=== PATIENT | female | born 1960 | race Caucasian/White ===

== ENCOUNTER → 2016-05-28 | Outpatient (CLI) | payer BC, OTHER ==
--- NOTE | ~2016-05-28 | 24HR ---
[facility] [place] [address] 24 HR ELECTROCARDIOGRAM REPORT Name: KRISTA LOPEZ Room #: REG [facility]#: [id number] Admission: 05/28/16 Attend Phys: Jose Solorzano MD Discharge: Date of : 64 Date of Service: 05/28/16 1131 Report #: [id number] THIS REPORT FOR: //name// [facility] Test Date: 2016-05-28 Test Time: 11:31:00 Pat Name: KRISTA LOPEZ Department: Room: Gender: Assembler Molded Frames: : 1960 Requested By: Jose Solorzano Order Number: [id number] Janessa MD: Lincoln Puente Interpretive Statements 1. Study duration 24 hours and technical quality acceptable. 2. Predominant rhythm sinus with average heart rate of 68bpm, range 46-125bpm Longest RR interval 1.4sec. 3. Rare atrial premature complexes. No atrial fibrillation or atrial flutter. No heart block. No supraventricular tachycardia. One 3 beat madelin ot atrial tachycardia occurring at rate of 132bpm. 4. One PVC. No ventricular tachycardia 5. No symptoms reported. Electronically Signed On 05-30-2016 13:28:39 WAITER/WAITRESS TAVERN by Lincoln Puente [email or web address] <ELECTRONICALLY SIGNED> By: Lincoln Puente MD, FACC 05/30/16 1328 1131 1131 Lincoln Puente MD, FAC /EPI
== END ==
LOC: CV 09:56
DX: R00.2 Palpitations (principal)

== ENCOUNTER → 2017-04-02 | Outpatient (CLI) | payer BC, OTHER | LOC: MRI 14:43 | DX: R94.31 Abnormal electrocardiogram [ECG] [EKG] (principal) ==